=== PATIENT | female | born 1990 | race Two or more races ===

== ENCOUNTER 2018-10-20 20:54 | Emergency (ER) | payer MEDICAID ==
[2018-10-20] MEDS ORDERED: INSULIN HUMAN REGULAR 100 UNITS/ML UNIT SUBQ ONE (21:12)
--- NOTE | 2018-10-20 21:21 | ED Physician Chart ---
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 no c/o lives with dad no fever or abscess Allergies:: Allergies Allergy/AdvReac Type Severity Reaction Status Date / Time clindamycin Allergy Verified 10/20/18 21:07 Vitals:: Vital Signs - 8 hr 10/20/18 21:07 Temp 97.9 F HR 87 RR 18 BP 102/66 O2 Sat % 98 ED Review of Systems - Review of Systems Skin: Skin lesions Head: No headache Eyes: No loss of vision ENT: No earache Cardio Vascular: No chest pain Pulmonary: No SOB GI: No vomiting G/U: No dysuria Musculoskeletal: No bone or joint pain Endocrine: No polyuria Hematopoietic: Bruising Neurological: No syncope ED Past Medical History - Past Medical History Past Medical History: DM (IVDA), Other (IVDA IDDM) Family Medical History - Family Member Mother History Unknown: Yes ED Physical Exam - Physical Examination General/Constitutional: Well-developed, well-nourished Head: Atraumatic Eyes: Lids, conjuctiva normal, PERRL, EOMI Skin: Well hydrated, No lymphadenopathy Other Skin comments:: SKIN GROVE ENMT: External ears, nose nl, Nasal exam nl, Lips, teeth, gums nl Neck: Nontender, Full ROM w/o pain, No JVD, No nuchal rigidity, No bruit, No mass, No stridor Respiratory: Nl effort/Exclusion, Clear to Auscultation, No Wheeze/Rhonchi/Rales Cardio Vascular: RRR, No murmur, gallop, rubs, NL S1 S2 GI: No tenderness/rebounding/guarding, No organomegaly, No hernia, Normal BS's, Nondistended, No mass/bruits, No McBurney tenderness : No CVA tenderness Extremities: No tenderness or effusion, Full ROM, normal strength in all extremities, No edema, Normal digits & nails Neuro/Psych: Alert/oriented, DTR's symmetric, Normal sensory exam, Normal motor strength, Judgement/insight normal, Mood normal, Normal gait, No focal deficits Misc: Normal back, No paraspinal tenderness ED Assessment - Assessment General Assessment: IVDA HEROINE IDDM HYPERGLYCEMIA GIVEN INSULIN ED Septic Shock - . Is Septic Shock (SBP<90, OR Lactate>4 mmol\L) present?: No - <6hrs of presentation: Vital Signs: Vital Signs - 8 hr 10/20/18 21:07 Temp 97.9 F HR 87 RR 18 BP 102/66 O2 Sat % 98 ED Reassessment (Disposition) - Reassessment Reassessment:: IVDA HEROINE ABUSE IDDM - Diagnosis Diagnosis:: ABOVE - Patient Disposition Discharge/Transfer:: Home Condition at Disposition:: Stable
[2018-10-20] MEDS ORDERED: INSULIN HUMAN REGULAR 100 UNITS/ML UNIT ONE (21:22)
== END 2018-10-20 21:40 | disposition still patient (30) ==
LOC: ER 20:54
DX: F11.10 Opioid abuse, uncomplicated (principal); E11.9 Type 2 diabetes mellitus without complications; Z88.1 Allergy status to other antibiotic agents
CPT/HCPCS: 99283; 96372; 36416; 82948; J1815; Z7502